=== PATIENT | male | born 1990 | race Caucasian/White ===

== ENCOUNTER → 2020-10-06 | Outpatient (CLI) | payer OTHER ==
--- NOTE | 2020-10-06 16:40 | XR ---
Lumbosacral spine HISTORY:[id number] LUMBAGO W RT SCIATICA 5 views of the lumbosacral spine There is a levoscoliosis centered at L3-4. There is multilevel spondylosis. Lumbar vertebral bodies s how preserved height and bone mineralization. Loss of disc height is present at L3-4, L4-5 and L5-S1, vacuum phenomenon present at L4-5. Sclerosis present in the posterior elements of the lower lumbar s pine. Oblique images show no spondylolysis. IMPRESSION: Degenerative disc disease, facet arthropathy, spinal curvature.
== END | disposition home or self-care (01) ==
LOC: RADXRYALE 14:58
PROVIDERS: ATTEND Physician Assistant Medical
DX: M51.36 Other intervertebral disc degeneration, lumbar region (principal); M47.896 Other spondylosis, lumbar region; M43.8X6 Other specified deforming dorsopathies, lumbar region
CPT/HCPCS: 72110

== ENCOUNTER 2023-11-23 10:04 | Day surgery (SDC) | payer MEDICAID, OTHER ==
[2023-11-21 13:24] VITALS: BMI 33.2
[2023-11-23 10:42] VITALS: TEMP 97.8
[2023-11-23] MEDS: IV FLUID CONTINUATION 1,000 ML IV ONE (10:42)
[2023-11-23] MEDS: LACTATED RINGERS 1,000 ML IV SCH (10:46)
[2023-11-23] MEDS ORDERED: PROPOFOL 10 MG/ML 20 ML VIAL IV ONE (11:44)
[2023-11-23] MEDS ORDERED: LIDOCAINE 2% (PF) 20 MG/ML 5 ML VIAL ONE (11:44)
--- NOTE | 2023-11-23 11:53 | P.PCN ---
Date of Procedure: 11/23/23 Procedure(s) Performed: BRIEF HISTORY: Patient is a 33-year-old, pleasant, white male scheduled for an upper endoscopy as a part evaluation of epigastric pain, fullness and abdominal bloating for the last 6 months duration. Patient was treated with omeprazole 20 mg daily with no help. Subsequently it was increased to 40 mg daily with some help. Lately has been on 40 mg twice daily and no significant change.. PROCEDURE PERFORMED: Esophagogastroduodenoscopy with biopsy. PREOPERATIVE DIAGNOSIS: Chronic epigastric pain/epigastric fullness and abdominal bloating of 6 months duration. IV sedation per anesthesia. PROCEDURE: After informed consent was obtained, the patient was brought into the endoscopy unit. IV sedation was administered by Anesthesia under continuous monitoring. Initially the Olympus GIF-140 video endoscope was inserted into the mouth. Esophagus intubated without any difficulty. It was gradually advanced into the stomach and duodenum and carefully examined. The bulb and the second part of the duodenum appeared normal. These were done from the duodenum to rule out celiac disease. The scope at this time was withdrawn to the stomach, adequately insufflated with air, and upon careful examination, mucosa of the antrum, had patchy areas of erythema which was biopsied. Mucosa body, cardia and the fundus appeared normal. The scope was then withdrawn into the esophagus. The GE junction was located at 45 cm from the incisors. The esophagus appeared normal. There were no erosions or ulcerations seen biopsies were done from the distal esophagus and the patient tolerated the procedure well. IMPRESSION: 1. Mild antral gastritis. 2. No evidence of esophagitis or peptic ulcer disease. RECOMMENDATIONS: The findings of this examination were discussed with the patient as well as his family. He was advised to follow-up with the biopsy results. Continue with omeprazole 40 mg daily and will add Carafate 1 g 4 times daily. Follow-up in office in 6 weeks.
[2023-11-23 12:17] VITALS: BP 133/83; PULSE 64; RESP 17
== END 2023-11-23 12:31 | disposition home or self-care (01) ==
LOC: ORWHC2ENDO 10:04
PROVIDERS: ATTEND Internal Medicine Gastroenterology
DX: R10.13 Epigastric pain
CPT/HCPCS: 43239; 88305; 88342

== ENCOUNTER → 2024-05-28 | Outpatient (CLI) | payer MEDICAID ==
--- NOTE | 2024-05-28 09:39 | CT ---
EXAMINATION TYPE: CT abdomen pelvis w con DATE OF EXAM: 05/28/2024 8:40 AM COMPARISON: None. CLINICAL INDICATION: Male, 33 years old with history of R10.12 LUQ pain; LUQ and LLQ pain X 1 year TECHNIQUE: Axial CT abdomen pelvis w con;Sagittal and coronal reformats were created on a separate w orkstation. Contrast used:100 ml mL of Isovue 300 with IV Contrast, (none if empty) Oral contrast used: with Oral Contrast (none if empty) CT DLP: 1334.20 mGycm, Automated exposure control for dose reduction was used. FINDINGS: LOWER CHEST: Unremarkable ABDOMEN LIVER: Unremarkable GALLBLADDER AND BILE DUCTS: Unremarkable. PANCREAS: Unremarkable. SPLEEN: Upper limits of normal in size 13.1 cm measured on axial series. ADRENAL GLANDS: Unremarkable. KIDNEYS AND URETERS: No evidence of hydronephrosis or renal calculus. The ureters are unremarkable. PELVIS BLADDER: Mild circumferential wall thickening. Tiny phlebolith right side of the pelvis. No abnormal fluid collection the pelvis. REPRODUCTIVE: Unremarkable. ABDOMEN & PELVIS STOMACH AND BOWEL: No evidence of bowel obstruction. Moderate stool burden. Normal appendix. No peric olonic inflammatory change. PERITONEUM/RETROPERITONEUM: No evidence of pneumoperitoneum or free fluid. VASCULATURE: No evidence of aortic aneurysm. MUSCULOSKELETAL: Moderate facet arthropathy mid to lower lumbar spine and moderate degenerative disc disease. Degenerative grade 1 retrolisthesis L3-L4 and L4-L5. LYMPH NODES: No gross evidence for lymphadenopathy. SOFT TISSUE/ABDOMINAL WALL: Unremarkable IMPRESSION: 1. Moderate stool burden. No acute inflammatory process identified. 2. Moderate degenerative change mid to lower lumbar spine more than expected for patient's age. [facility], , 05/28/2024 9:37 AM
== END | disposition home or self-care (01) ==
LOC: RADCTMAIN 06:44
PROVIDERS: ATTEND Family Medicine
DX: R10.12 Left upper quadrant pain (principal); R10.32 Left lower quadrant pain; M47.816 Spondylosis without myelopathy or radiculopathy, lumbar region
CPT/HCPCS: 74177; Q9967